=== PATIENT | female | born 1980 ===

== ENCOUNTER 2021-06-07 11:30 | Inpatient (IN) | payer OTHER ==
[~2021-06-07] VITALS: Ht 172.7 cm; Wt 77.1 kg
[2021-06-10] MEDS ORDERED: IRON325 MG PO (17:24)
[2021-06-10] MEDS ORDERED: PRENATAL CAPLE1 EAC1 PO (17:24)
== END 2021-06-12 13:29 | disposition home or self-care (01) | DRG 807 ==
LOC: SURG-SUITE 06-10 16:16 → LDR 06-10 16:16 → SURG-SUITE 06-10 19:21 → SURH 06-18 11:30
PROVIDERS: ADMIT Specialist; ATTEND Specialist
PROC: 10E0XZZ Delivery of Products of Conception, External Approach (ICD-10-PCS; principal; 2021-06-10)
PROC: 0HQ9XZZ Repair Perineum Skin, External Approach (ICD-10-PCS; 2021-06-10)
PROC: 4A1HXFZ Monitoring of Products of Conception, Cardiac Rhythm, External Approach (ICD-10-PCS; 2021-06-10)
DX: O99.12 Other diseases of the blood and blood-forming organs and certain disorders involving the immune mechanism complicating childbirth (principal); Z37.0 Single live birth; D69.6 Thrombocytopenia, unspecified; O99.824 Streptococcus B carrier state complicating childbirth; O70.0 First degree perineal laceration during delivery; Z3A.39 39 weeks gestation of pregnancy